=== PATIENT | male | born 1975 | race Hispanic/Latino ===

== ENCOUNTER 2023-09-03 17:13 | Emergency (ER) | payer OTHER ==
[~2023-09-03] VITALS: Ht 172.7 cm; Wt 72.6 kg
[~2023-09-03 17:13] MED LIST: METHOCARBAMOL750 MG PO; NORCO 5-325 TA1 EACH PO; PROBIOTIC1 EAC1 PO; TAMOXIFEN CITRA20 MG PO; VENLAFAXINE H37.5 MG PO; ZOFRAN ODT8 MG SL
[2023-09-03] MEDS ORDERED: CEPHALEXIN500 M1 PO (19:41)
[2023-09-03] MEDS ORDERED: HYDROCODON-ACE1 EA10 PO (19:41)
[2023-09-03 19:55] VITALS: BP 121/87
== END 2023-09-03 19:55 | disposition home or self-care (01) ==
LOC: ED 17:13
DX: S62.631B Displaced fracture of distal phalanx of left index finger, initial encounter for open fracture (principal); S62.621B Displaced fracture of middle phalanx of left index finger, initial encounter for open fracture; W29.8XXA Contact with other powered hand tools and household machinery, initial encounter
CPT/HCPCS: 12004; 73140; 99283-25; A9270

== ENCOUNTER 2025-06-05 18:27 | Emergency (ER) | payer SELFPAY ==
[~2025-06-05] VITALS: Ht 172.7 cm; Wt 70.6 kg
[~2025-06-05 18:27] MED LIST changes: +CEPHALEXIN500 M1 PO; +HYDROCODON-ACE1 EA10 PO
[2025-06-05] MEDS ORDERED: AMOX TR-K CLV1 EAC1 PO (18:47)
[2025-06-05] MEDS ORDERED: KETOROLAC TROMETHAMINE 30 MG/ML VIAL IV ONE (19:45)
[2025-06-05] MEDS ORDERED: SODIUM CHLORIDE 0.9% 1,000 ML IV ONE (19:45)
[2025-06-05] MEDS ORDERED: METOCLOPRAMIDE HCL 10 MG/2 ML SDV IV ONE (19:45)
[2025-06-05 20:32] LABS: BASOPHILS 0.5 % (0.2-1.2); EOSINOPHILS 0.2 % (0.8-7.0); LYMPHOCYTES 10.8 % (21.8-53.1); MCH 29.1 PG (25.7-32.2); MCHC 32.9 g/dL (32.3-36.5); MCV 88.6 fL (79.0-92.2); MONOCYTES 8.7 % (5.3-12.2); NEUTROPHILS 79.1 % (34.0-67.9); RBC 4.84 M/uL (4.63-6.08)
[2025-06-05 20:48] LABS: ALT (SGPT) 50.0 U/L (14-59); AST (SGOT) 28.0 U/L (15-37); GLOMERULAR FILTRATION RATE,EST 107.0 mL/min (>60); PROTEIN, TOTAL 7.7 g/dL (6.4-8.2); UREA NITROGEN 13.0 mg/dL (7-18)
[2025-06-05] MEDS ORDERED: BUTALB-ACETAMI1 EACH PO (20:59)
[2025-06-05] MEDS ORDERED: methylPREDNISolone 4 MG HOME.PACK PO ONE (21:00)
[2025-06-05] MEDS ORDERED: HYDROCODONE BIT/ACETAMINOPHEN 5/325 MG 1 TAB HOME.PACK PO ONE (21:00)
[2025-06-05] MEDS ORDERED: ONDANSETRON ODT8 MG PO (21:03)
[2025-06-05] MEDS ORDERED: ONDANSETRON 4 MG HOME.PACK SL ONE (21:15)
[2025-06-05 21:30] VITALS: BP 113/78
== END 2025-06-05 21:30 | disposition home or self-care (01) ==
LOC: ED 18:27
PROVIDERS: Family Medicine
DX: J32.9 Chronic sinusitis, unspecified (principal)
CPT/HCPCS: 36415; 70450; 80053; 83735; 85025; 96374; 96375; 99284-25; A9270; J1200; J1885; J2765; J3030; J7030